=== PATIENT | female | born 1995 | race African-American/Black ===

== ENCOUNTER 2021-03-09 10:03 | Outpatient (CLI) | payer MEDICAID | END 2021-03-09 10:04 | disposition home or self-care (01) | LOC: CSHULT 10:03 | PROVIDERS: ATTEND Family Medicine | DX: O09.892 Supervision of other high risk pregnancies, second trimester (principal); Z3A.20 20 weeks gestation of pregnancy | CPT/HCPCS: 76805 ==

== ENCOUNTER 2021-06-12 13:38 | Inpatient (IN) | payer OTHER ==
[2021-06-12] MEDS ORDERED: Famotidine/PF 20 mg/2ml Vial SLOW IVP PRN (14:26)
[2021-06-12] MEDS ORDERED: Promethazine HCl 25 MG/ML VIAL IM PRN (14:26)
[2021-06-12] MEDS ORDERED: Bicitra 30 ML UDCUP PO PRN (14:26)
[2021-06-12] MEDS ORDERED: hydrALAZINE 20 MG/ML VIAL SLOW IVP PRN (14:26)
[2021-06-12] MEDS ORDERED: Ondansetron PF 4 MG/2 ML Vial IVP PRN (14:26)
[2021-06-12] MEDS ORDERED: Butorphanol Tartrate 1 MG/ML VIAL SLOW IVP PRN (14:26)
[2021-06-12] MEDS ORDERED: ceFAZolin 2 GM/Dextrose 50 ML 2 GM in Premix Bag 1 BAG IVPB SCH (14:30)
[2021-06-12] MEDS ORDERED: Lactated Ringer's 1,000 ML IV SCH (14:30)
[2021-06-12 15:24] LABS: Hemoglobin 10.5 g/dL (12.0-15.5); Mean Corpuscular HGB CONC 31.4 g/dL (32.0-36.0); Mean Corpuscular Hemoglobin 24.1 pg (27.0-33.0); Mean Corpuscular Volume 76.8 fl (81.6-98.3); Mean Platelet Volume 10.7 fl (7.4-10.4); Platelet Count 334 10x3/uL (150-450); RBC Distribution Width 17.2 % (11.5-14.5); Red Blood Cell (RBC) Count 4.35 10x6/uL (3.90-5.03)
[2021-06-12 15:56] LABS: Hep B Surf Ag Non-Reactive S/CO (NonReactive); Syphilis Antibody Nonreactive (Nonreactive); Syphilis Antibody Index 0.04 S/CO (<1.00 Non-Reactive)
[2021-06-12 15:58] LABS: HBSAg Index 0.16 S/CO (0-0.99)
[2021-06-12 16:38] VITALS: BMI 36.8
[2021-06-12 17:55] LABS: Amphetamine Not Detected (NotDetected); Barbiturates Screen Not Detected (NotDetected); Benzodiazepine Screen Not Detected (NotDetected); Cocaine Metabolite Screen Not Detected (NotDetected); Methadone Not Detected (NotDetected); Methamphetamine Not Detected (NotDetected); Opiate Screen Not Detected (NotDetected); Oxycodone Screen Not Detected (NotDetected); Phencyclidine (PCP) Not Detected (NotDetected); THC/Cannabinoid Screen Not Detected (NotDetected); Tricyclic Screen Not Detected (NotDetected)
[2021-06-12 19:08] LABS: SARS-CoV-2 NAA Rapid Test Not Detected (NotDetected)
[2021-06-12] MEDS: Lactated Ringer's 1,000 ML IV SCH (21:18)
[2021-06-12] MEDS: Betamet Acet/Betamet Na Ph 30 MG/5 ML VIAL IM SCH ×2 (21:19→21:27)
[2021-06-13] MEDS: Lactated Ringer's 1,000 ML IV SCH (00:29)
[2021-06-13] MEDS: Ferrous Sulfate 325 MG TAB PO SCH (17:03)
[2021-06-13] MEDS: Betamet Acet/Betamet Na Ph 30 MG/5 ML VIAL IM SCH (21:42)
[2021-06-14] MEDS: Lactated Ringer's 1,000 ML IV SCH ×2 (07:15→17:24)
[2021-06-14] MEDS: Ferrous Sulfate 325 MG TAB PO SCH ×2 (09:10→17:49)
[2021-06-15] MEDS: Lactated Ringer's 1,000 ML IV SCH ×3 (09:05→15:37)
[2021-06-15] MEDS: Ferrous Sulfate 325 MG TAB PO SCH (09:16)
[2021-06-15 11:41] VITALS: BP 104/62; TEMP 98.4
== END 2021-06-15 16:00 | disposition home or self-care (01) | DRG 832 ==
LOC: CSHLD/OP 13:38 → CSHANTE 17:28
PROVIDERS: ADMIT Family Medicine; ATTEND Family Medicine
DX: O36.8130 Decreased fetal movements, third trimester, not applicable or unspecified (principal); O47.03 False labor before 37 completed weeks of gestation, third trimester; Z3A.35 35 weeks gestation of pregnancy; O34.211 Maternal care for low transverse scar from previous cesarean delivery; Z20.822 Contact with and (suspected) exposure to COVID-19; O36.5930 Maternal care for other known or suspected poor fetal growth, third trimester, not applicable or unspecified
CPT/HCPCS: 76815; 76819; 80306; 85027; 86780; 86850; 86900; 86901; 87340; 99282; J0702; U0002